=== PATIENT | female | born 1955 | race Caucasian/White ===

== ENCOUNTER → 2016-09-09 | Outpatient (CLI) | payer OTHER | LOC: CIMAGING 10:30 | PROVIDERS: ATTEND Family Medicine | DX: R79.89 Other specified abnormal findings of blood chemistry (principal) | CPT/HCPCS: 76770-PO ==

== ENCOUNTER 2016-10-15 09:22 | Emergency (ER) | payer OTHER ==
[2016-10-15 09:49] VITALS: BP 147/87; PULSE 75; RESP 16; TEMP 98.2; O2SAT 96
--- NOTE | 2016-10-15 10:26 | UCPHY ---
H & P Time Seen by Provider: 10/15/16 09:35 Patient Type: Established HPI/ROS: 61-year-old female presents complaining of right mid back pain that began after heavy lifting on Thursday. No loss of bowel or bladder control no radiation into her buttock, no weakness in her legs no numbness or tingling in legs. Review of systems General no fever no chills no weakness HEENT no eye pain no eye discharge. No eye redness, no sore throat Respiratory no cough, no shortness of breath Cardiac no chest pain, no peripheral edema GI no abdominal pain, no diarrhea, no constipation, no nausea, no vomiting no flank pain, no hematuria, no dysuria Musculoskeletal positive myalgias, no joint pain, positive right mid back pain Heme no easy bruising, no easy bleeding Endo no polyuria, no polydipsia Skin no rashes, no pruritus Neuro no syncope, no dizziness, no headaches Psych is no suicidal ideation, no homicidal ideation Past Medical/Surgical History: Migraines Social History: Denies excessive alcohol or drug use Smoking Status: Never smoked Physical Exam: 61-year-old female alert and oriented mild distress secondary to back pain nontoxic appearance afebrile HEENT atraumatic normocephalic, extraocular muscles intact, anicteric Oropharynx negative for erythema negative exudate, tolerating her own secretions Neck supple no meningismus Lungs clear to auscultation bilaterally Heart regular rate and rhythm without murmur rub or gallop Abdomen nondistended normoactive bowel sounds soft nontender Back no CVA tenderness, no step-offs, no spinal tenderness Right mid back pain with tenderness to palpation, with muscle spasm No ecchymosis no rash negative straight leg raise, worse with lateral bending Able to walk on heels and toes Extremities no cyanosis clubbing or edema Neuro alert and oriented, no focal deficits Constitutional: Initial Vital Signs Temperature (C) 36.8 C 10/15/16 09:38 Heart Rate 75 10/15/16 09:38 Respiratory Rate 16 10/15/16 09:38 Blood Pressure 147/87 H 10/15/16 09:38 O2 Sat (%) 96 10/15/16 09:38 O2 Delivery Mode Room Air Allergies/Adverse Reactions: Penicillins Allergy (Verified 10/15/16 09:42) Home Medications: Medication Instructions Recorded Hydrocodone/Acetaminophen [[place] 1 tab PO Q6H PRN #16 tab 10/15/16 5/325 (*)] Methocarbamol 500 mg PO TID PRN #21 tablet 10/15/16 Topamax 10/15/16 Medical Decision Making ED Course/Re-evaluation: Patient seen and evaluated for right back pain Differential diagnosis Urinary tract infection, pyelonephritis, back trauma, back muscle spasm, back strain, herniated disc Impression Back muscle spasm/strain secondary to heavy lifting Plan Muscle relaxant, pain medication Ice Follow up with primary care physician Departure - Departure Disposition: Home, Routine, Self-Care Clinical Impression: Spasm of back muscles Condition: Good Instructions: Low Back Strain (ED), Acute Low Back Pain (ED), Muscle Spasm (ED) Additional Instructions: Ice only for the next 24 hours after that alternate ice and heat as desired. Ibuprofen every 6-8 hours as needed for pain /inflammation, take with food. Muscle relaxant, methocarbamol every 8 hours for muscle spasm. Pain medicine, hydrocodone with acetaminophen every 6 hours as needed for severe pain. Referrals: Mone Warren PA [Primary Care Provider] - As per Instructions Stand Alone Forms: Statement of Treatment Prescriptions: Hydrocodone/Acetaminophen [[place] 5/325 (*)] 1 tab PO Q6H PRN #16 tab PRN Reason: Pain, Moderate Methocarbamol 500 mg PO TID PRN #21 tablet PRN Reason: Spasms - PQRS PQRS Measurement: na
== END 2016-10-15 10:30 | disposition home or self-care (01) ==
LOC: CED 09:22
DX: M62.830 Muscle spasm of back (principal); X50.0XXA Overexertion from strenuous movement or load, initial encounter
CPT/HCPCS: G0463-PO

== ENCOUNTER → 2016-12-18 | Outpatient (CLI) | payer OTHER | LOC: CIMAGING 10:08 | PROVIDERS: ATTEND Physician Assistant Medical | DX: M51.85 Other intervertebral disc disorders, thoracolumbar region (principal) | CPT/HCPCS: 72100-PO ==

== ENCOUNTER → 2016-12-21 | Outpatient (CLI) | payer OTHER | LOC: CIMAGING 13:14 | PROVIDERS: ATTEND Physician Assistant Medical | DX: M48.54XD Collapsed vertebra, not elsewhere classified, thoracic region, subsequent encounter for fracture with routine healing (principal); M54.5 Low back pain | CPT/HCPCS: 72070-PO ==

== ENCOUNTER → 2017-06-16 | Outpatient (CLI) | payer OTHER | LOC: CIMAGING 14:31 | PROVIDERS: ATTEND Physician Assistant Medical | DX: Z12.31 Encounter for screening mammogram for malignant neoplasm of breast (principal) | CPT/HCPCS: G0202 ==

== ENCOUNTER → 2018-06-07 | Outpatient (CLI) | payer OTHER, MEDICARE | LOC: CIMAGING 11:03 | PROVIDERS: ATTEND Physician Assistant Medical | DX: Z12.31 Encounter for screening mammogram for malignant neoplasm of breast (principal) ==

== ENCOUNTER → 2018-11-04 | Outpatient (CLI) | payer OTHER, MEDICARE | LOC: CIMAGING 15:16 | PROVIDERS: ATTEND Physician Assistant Medical | DX: M79.674 Pain in right toe(s) (principal) | CPT/HCPCS: 73660-PO ==